=== PATIENT | female | born 1950 | race Asian ===

== ENCOUNTER 2016-10-14 06:10 | Day surgery (SDC) | payer OTHER, MEDICARE ==
[2016-10-08 17:15] VITALS: BMI 28.1
[2016-10-14] MEDS ORDERED: THROMBIN (BOVINE) 5,000 UNIT VIAL TP ONE (07:15)
[2016-10-14] MEDS ORDERED: COCAINE HCL 4% TOPICAL SOLUTION 4 ML BOTTLE TP ONE (07:15)
[2016-10-14] MEDS ORDERED: POVIDONE-IODINE 5% OPHTHALMIC PREP 30 ML SOLUTION ONE (07:16)
[2016-10-14] MEDS ORDERED: TETRACAINE 0.5% OPHTH SOLN 2 ML BOTTLE ONE (07:16)
[2016-10-14] MEDS ORDERED: BUPIVACAINE HCL/PF 0.5% (5MG/ML) 10 ML VIAL ONE (07:16)
[2016-10-14] MEDS ORDERED: LIDOCAINE 1%-EPI 1:100,000 30 ML MDV IJ ONE (07:16)
[2016-10-14] MEDS ORDERED: BACITRACIN 3.5 GM OPTHALMIC OINT TUBE ONE (07:25)
[2016-10-14] MEDS ORDERED: SUCCINYLCHOLINE CHLORIDE 200 MG/10 ML VIAL ONE (07:30)
[2016-10-14] MEDS ORDERED: PROPOFOL 20 ML ONE ×8 (07:30→07:53)
[2016-10-14] MEDS ORDERED: ceFAZolin SODIUM 1 GM VIAL ONE (07:38)
[2016-10-14] MEDS ORDERED: METOPROLOL TARTRATE 5 MG/5 ML VIAL ONE (07:48)
[2016-10-14] MEDS ORDERED: ONDANSETRON 4 MG/2 ML VIAL ONE ×2 (08:08→09:52)
[2016-10-14] MEDS ORDERED: ACETAMINOPHEN 500 MG TABLET (FP) PO PRN (08:51)
[2016-10-14] MEDS ORDERED: oxyCODONE HCL 5 MG TABLET PO PRN (09:01)
[2016-10-14] MEDS ORDERED: ONDANSETRON 4 MG/2 ML VIAL IVPUSH PRN (09:01)
[2016-10-14] MEDS ORDERED: LACTATED RINGERS SOLUTION 1,000 ML IV SCH (09:15)
[2016-10-14 11:00] VITALS: BP 132/69; PULSE 68; TEMP 97.6
--- NOTE | 2016-10-14 11:35 | OP ---
DATE OF OPERATION: 10/14/2016 PREOPERATIVE DIAGNOSIS: Status post dacryocystitis with nasal lachrymal obstruction, right. POSTOPERATIVE DIAGNOSIS: Status post dacryocystitis with nasal lachrymal obstruction, right. PROCEDURE: 1. External dacryocystorhinostomy, right. 2. Silicone intubation, right lachrymal cyst. 3. Lachrymal sac biopsy. 4. Middle turbinectomy, partial. 5. Endoscopy. SURGEON: Radha Sheldon MD ANESTHESIA: Local with sedation. COMPLICATONS: None. ESTIMATED BLOOD LOSS: 10-15 mL. OPERATION REPORT: Patient was brought to the operating room, placed on the operating room table. Vital signs monitored by Anesthesia. Patient was given intravenous sedation. A time-out was performed. A tear trough incision was marked in the right tear trough for the proposed surgery, and then, a 50/50 mixture of 2% Xylocaine with 1:100,000 epinephrine and 0.5% Marcaine was injected subcutaneously in the tear trough, lateral wall of the nose, anterior lacrimal crest, and dorsal nasal artery. Then, under direct visualization, the very large middle meatus and very large middle turbinate and septum and the external naris were injected as well, but this was just with 2% Xylocaine with 1:100,000 epinephrine, following which, the right nostril was packed with Cottonoids moistened with Afrin. Following this, patient was prepped and draped in the usual sterile fashion exposing both eyes and the nose. The left eye was closed. The right eye was initially closed, as well. An incision was made in the tear trough that had been previously marked. This was carried through fibrous tissue and scar tissue which was left and left the area thickened due to prior dacryocystitis. This was carried down to the anterior lacrimal crest and the anterior limb of the medial canthal tendon. Periosteum and anterior limb of the medial canthal tendon were incised with the Rawlins needle. Periosteum was reflected laterally exposing a large lacrimal sac fossa. Dissection was carried down to the junction of the maxillary bone lacrimal, and lacrimal bone was penetrated with a hemostat, and upbiting Kerrison rongeurs were used to create an osteotomy extending from the medial canthal tendon to the anterior lacrimal crest to the inferior edge of the lacrimal fossa. The mucosa was injected with 2% Xylocaine with 1:100,000 epinephrine. The packing with Cottonoid soaked in thrombin was placed. The upper and lower puncta were dilated, intubated with Lilly probes, extending the medial wall of the sac medially. The sac was opened on its medial surface with a 15 blade, and anterior and posterior lacrimal sac lacrimal sac flaps were created and the lacrimal sac was biopsied. There were no tumors or tissues noted. The anterior lacrimal sac was secured with a double-arm 5-0 chromic suture and looped out of the wound. Packing was removed from the nose and from the surgical site, and then [place] was used to elevate the mucosa, which was incised vertically, and an anterior and posterior nasal mucosal flap was created in this fashion. A very large turbinate, which was impacting the area of the surgical site, made it difficult to pass the [place] and also would prevent postoperative of the ostium. Therefore, the turbinate was injected, and the turbinate was partially resected with Kerrisons and Peggy scissors. It should be noted this was an aerated turbinate, and when this turbinate was first opened, there was a huge air space within the turbinate. The inferior portion of the turbinate was removed, and this cleared the ostium to the middle meatus. System was then intubated with Dempsey probes and retrieved with a Dempsey hook through the right external naris. The stents were removed with probes. The stents were tied with locking knots and secured in the right external naris with a single 6-0 Prolene suture with minimal tension on the left and the right meatal canthus. The anterior lacrimal sac flap was closed to the anterior nasal mucosal flap with 5-0 chromic, and this was mattressed and sutured to the periosteum, as well, and also an additional interrupted 4-0 chromic suture was used for closing over the silicone stents. The subcuticular tissues were closed after antibiotic irrigation with subcutaneous 5-0 chromic, and the skin was closed with multiple interrupted 6-0 plain sutures with plastic technique. The endoscope was introduced into the nose demonstrating good clearance of the ostium from the resected middle turbinate. This one portion of the inferior middle turbinate remained, but this was close to the septum and far away from the ostium. Photographs were taken. Afrin was sprayed in the nose. Bacitracin ointment was placed on the sutures, and the patient was taken to the recovery room in stable condition. RADHA SHELDON M.D. [id number]
--- NOTE | 2016-10-16 16:16 | PATH ---
Surgical Pathology Report Patient Name: ARIAS STOREY [facility]. Rec. #: [id number] /Age/Gender: 1950 (Age: 66) / F Account: [id number] Location: [facility] Taken: 10/14/2016 Received: 10/14/2016 Reported: 10/16/2016 Physicians: Dorian Morales Specimen(s) Received A: LACRIMAL SAC BIOPSY B: TURBINATE TISSUE Clinical History Blocked tear duct Final Diagnosis A. LACRIMAL SAC, BIOPSY: LACRIMAL SAC TISSUE SHOWING CHRONIC INFLAMMATION AND FIBROSIS. B. TURBINATES, BIOPSY: RESPIRATORY-TYPE MUCOSA SHOWING CHRONIC INFLAMMATION AND FIBROSIS. BONE WITH NO PATHOLOGIC FINDINGS. Electronically Signed Loren Urena M.D. Gross Description A. Received in formalin, labeled "lacrimal sac biopsy" is a james, irregular portion of soft tissue measuring 0.2 cm. in greatest dimension. The specimen is submitted in toto in one cassette. B. Received in formalin labeled "turbinates," is a 0.5 x 0.5 x 0.1 cm aggregate of james possible bone fragments. The specimen is submitted in toto in one cassette, following decalcification. /10/15/2016 saudi10/15/2016
== END 2016-10-14 11:04 | disposition home or self-care (01) ==
LOC: FASU 06:10
PROVIDERS: ATTEND Ophthalmology
PROC: 081X0Z3 Bypass Right Lacrimal Duct to Nasal Cavity, Open Approach (ICD-10-PCS; principal; 2016-10-14 07:52)
DX: H04.321 Acute dacryocystitis of right lacrimal passage (principal)
CPT/HCPCS: 88304-TC; 88305-TC; 94760